=== PATIENT | male | born 1995 | race Caucasian/White ===

== ENCOUNTER 2025-05-27 10:32 | Emergency (ER) | payer OTHER ==
[~2025-05-27] VITALS: Ht 172.7 cm; Wt 79.4 kg
[2025-05-27 10:38] VITALS: TEMP 98.6
[2025-05-27] MEDS ORDERED: KETOROLAC TROMETHAMINE 15 MG/ML VIAL ONE (11:49)
[2025-05-27] MEDS: KETOROLAC TROMETHAMINE 15 MG/ML VIAL IV ONE (11:50)
[2025-05-27] MEDS: IV NS 0.9% 1,000 ML BAG IV ONE (11:50)
[2025-05-27 11:57] LABS: PLATELET COUNT (AUTO) 182 K/uL (150-450); RED BLOOD CELL COUNT(AUTO) 5.38 MIL/uL (4.5-6.0); RED CELL DISTRIBUTION WIDTH 13.0 % (11.5-15.0); WHITE BLOOD COUNT (AUTO) 5.3 K/uL (4.3-11.0)
[2025-05-27 12:07] LABS: CALCIUM, SERUM 9.1 mg/dL (8.5-10.1); CREATININE 1.2 mg/dL (0.6-1.3); SODIUM SERUM 139.0 mmol/L (136-145); UREA NITROGEN, BLOOD 18.0 mg/dL (7-18)
[2025-05-27 12:12] LABS: ASPARTATE AMINOTRANSFERASE 15.0 U/L (15-37); TOTAL PROTEIN, SERUM 7.8 g/dL (6.4-8.2)
[2025-05-27 12:30] LABS: LYMPHOCYTES % (MANUAL) 29 % (16-48); MONOCYTES % (MANUAL) 14 % (0-11.0); NEUTROPHILS % (MANUAL) 57 (42-76)
[2025-05-27 12:31] LABS: PLATELET ESTIMATE ADEQUATE
[2025-05-27 12:44] LABS: APPEARANCE,URINE CLEAR (CLEAR); BLOOD, URINE NEGATIVE Ery/uL (NEGATIVE); LEUKOCYTE ESTERASE ,URINE NEGATIVE (NEGATIVE); NITRITE, URINE NEGATIVE (NEGATIVE); UGLUCOSE NEGATIVE (NEGATIVE)
[2025-05-27 12:45] LABS: ADD URINE CULTURE NO; SQUAMOUS EPITHELIAL CELL,UR Few /HPF (None Seen)
[2025-05-27 12:57] VITALS: BP 130/80; O2SAT 98
== END 2025-05-27 12:57 | disposition home or self-care (01) ==
LOC: ER 10:35
DX: U07.1 COVID-19 (principal); N20.0 Calculus of kidney; Z87.442 Personal history of urinary calculi
CPT/HCPCS: 99285; 74176; 96374; 96361; 85027; 80048; 83690; 80076; 85007; 81001; 36415; J1885; J7030